=== PATIENT | female | born 1960 | race Caucasian/White ===

== ENCOUNTER → 2018-12-30 | Outpatient (CLI) | payer BC ==
--- NOTE | 2018-12-30 08:51 | US ---
EXAMINATION TYPE: US liver DATE OF EXAM: 12/30/2018 COMPARISON: NONE CLINICAL HISTORY: R74.8 Elevated lfts. EXAM MEASUREMENTS: Liver Length: 16.9 cm Gallbladder Wall: 0.2 cm CBD: 0.4 cm Right Kidney: 9.3 x 4.4 x 5.2 cm Pancreas: wn as seen Liver: Increased attenuation Gallbladder: No stones seen Evidence for sonographic Baig's sign: no CBD: wnl Right Kidney: No hydronephrosis or masses seen Homogeneous pancreas without mass or ductal dilatation on images saved. Liver is overall fairly homog eneous without intrahepatic mass or ductal dilatation. Hydronephrosis in the right kidney. Gallbladde r shows no shadowing mobile gallstones. IMPRESSION: No suspicious intrahepatic mass or intrahepatic ductal dilatation.
== END | disposition home or self-care (01) ==
LOC: RADUSWWP 07:32
PROVIDERS: ATTEND Family Medicine
DX: R74.8 Abnormal levels of other serum enzymes (principal)
CPT/HCPCS: 76705

== ENCOUNTER → 2019-05-12 | Outpatient (CLI) | payer BC ==
--- NOTE | 2019-05-12 16:14 | US ---
EXAMINATION TYPE: US thyroid st tissue head/neck DATE OF EXAM: 05/12/2019 COMPARISON: NONE CLINICAL HISTORY: E04.9 Goiter. Pt states physician felt thyroid to be enlarged on examination GLAND SIZE: Right Lobe: 3.8 x 1.3 x 1.4 cm Overall Parenchyma: heterogenous Left Lobe: 4.3 x 1.4 x 1.2 cm Overall Parenchyma: heterogeneous Isthmus Thickness: 0.3 cm Bilateral neck scanned, no evidence of lymphadenopathy. No evidence of nodules bilaterally, thyroid f elt to appear heterogeneous. IMPRESSION: Diffusely heterogenous thyroid gland with prominent size however no focal measurable nodu le is seen.
== END | disposition home or self-care (01) ==
LOC: RADUSWWP 15:53
PROVIDERS: ATTEND Family Medicine
DX: E07.9 Disorder of thyroid, unspecified (principal)
CPT/HCPCS: 76536

== ENCOUNTER → 2022-11-23 | Outpatient (CLI) | payer BC ==
--- NOTE | 2022-11-23 14:23 | US ---
EXAMINATION TYPE: US thyroid st tissue head/neck DATE OF EXAM: 11/23/2022 COMPARISON: There are ultrasound 05/12/2019 CLINICAL INDICATION: Female, 62 years old with history of R49.0 DYSPHONIA; Dysphonia GLAND SIZE: Right Lobe: 4.4 x 1.4 x 1.1 cm Overall Parenchyma: homogenous Left Lobe: 4.5 x 1.5 x 1.3 cm Overall Parenchyma: homogeneous Isthmus Thickness: .2 cm NODULES RIGHT: # of nodules measured on right: 0 LEFT: # of nodules measured on left: 0 ISTHMUS: # of nodules measured in the isthmus: 0 Hypoechoic area seen lateral right neck .9 x .3 x .6 cm. This demonstrates with thin central fatty hi lum and is consistent with a benign lymph node. IMPRESSION: Mildly prominent thyroid gland with no discrete thyroid nodule.
== END | disposition home or self-care (01) ==
LOC: RADUSWWP 13:22
PROVIDERS: ATTEND Family Medicine
DX: R49.0 Dysphonia (principal)
CPT/HCPCS: 76536

== ENCOUNTER → 2024-02-11 | Outpatient (CLI) | payer BC ==
--- NOTE | 2024-02-15 10:07 | CT ---
EXAMINATION TYPE: CT angio head neck CT DLP: 1447.50 mGycm, Automated exposure control for dose reduction was used. DATE OF EXAM: 02/11/2024 4:45 PM COMPARISON: None.. CLINICAL INDICATION:Female, 63 years old with history of R51.9 HEADACHE, UNSPECIFIED; PHH, headache x 1 month. TECHNIQUE: Axially acquired helical CT angiogram of the head and neck was obtained with contrast. Axi al images are supplemented with 3D reconstructions and MIP images which were post-processed at an in dependent workstation. NASCET criteria used. Contrast used:65ml mL of Isovue 300 without and with IV Contrast, Oral contrast used: None. FINDINGS: CTA HEAD: No evidence of acute intracranial hemorrhage, mass effect, or midline shift. The ventricles, sulci, a nd cisterns are unremarkable. The visualized portions of the internal carotid arteries, middle cerebral arteries, anterior cerebral arteries, and posterior cerebral arteries are patent. The basilar and vertebral arteries are patent. CTA NECK: Right Carotid System: The common carotid artery and external carotid artery are patent. The carotid bifurcation demonstrate s no evidence of hemodynamically significant stenosis. The remaining portions of the internal carotid artery demonstrate normal size without significant narrowing. Left Carotid System: The common carotid artery and external carotid artery are patent. The carotid bifurcation demonstrate s no evidence of hemodynamically significant stenosis. The remaining portions of the internal carotid artery demonstrate normal size without significant narrowing. Vertebral arteries are patent without evidence hemodynamically significant stenosis. There is a three-vessel aortic arch. The origins of the great vessels are patent. No evidence of hemo dynamically significant stenosis. Upper thorax: IMPRESSION: 1. No evidence of dissection of the cervical internal carotid arteries or vertebral arteries or any e vidence of significant stenosis at the carotid bifurcations. 2. No evidence of intracranial high-grade stenosis or intracranial aneurysm.
== END | disposition home or self-care (01) ==
LOC: RADCTMAIN 12:01
PROVIDERS: ATTEND Family Medicine
DX: R51.9 Headache, unspecified (principal)
CPT/HCPCS: 70496; 70498; Q9967

== ENCOUNTER → 2024-12-25 | Outpatient (CLI) | payer MEDICARE, BC ==
--- NOTE | 2024-12-25 18:04 | MR ---
EXAMINATION TYPE: MR brain wo con DATE OF EXAM: 12/25/2024 10:10 AM COMPARISON: None. CLINICAL INDICATION: Female, 64 years old with history of R51.9 HEADACHE, Headache and dizziness TECHNIQUE: Multiplanar, multiecho imaging on a 3.0 Ebony magnet is performed through the brain. Stud y is performed within 24 hours of arrival to the hospital.Multiplanar, multiecho imaging on a 3.0 Deana la magnet is performed through the knee. IV Contrast: mL (None, if empty) FINDINGS: The craniovertebral junction is normal. The pituitary is normal. Diffusion-weighted imaging is performed. No abnormal hyperintensity is present to suggest an acute i ntracranial infarct or acute ischemic change. There is some minimal periventricular white matter hyperintensity, likely on the basis of mild chroni c matter ischemic changes. Ventricles and sulci are appropriate for the patient age. There are inferior bilateral maxillary sinus retention cysts present. Mild mucosal thickening in ethm oid air cells. Remaining paranasal sinuses and air cells are clear. IMPRESSION: 1. No acute intracranial process. Follow-up can be performed as clinically indicated. 2. There may be some minimal chronic white matter changes. 3. Retention cysts and the coastal thickening within the maxillary and ethmoid air cells no acute sin usitis. [facility], , 12/25/2024 6:02 PM
== END | disposition home or self-care (01) ==
LOC: RADMRIMAIN 08:57
PROVIDERS: ATTEND Family Medicine
DX: J34.1 Cyst and mucocele of nose and nasal sinus (principal)
CPT/HCPCS: 70551

== ENCOUNTER → 2025-01-22 | Outpatient (CLI) | payer MEDICARE, BC | END | disposition home or self-care (01) | LOC: LABWHC1 09:50 | PROVIDERS: ATTEND Internal Medicine | DX: R06.02 Shortness of breath (principal); R42 Dizziness and giddiness | CPT/HCPCS: 36415; 85379 ==

== ENCOUNTER 2025-01-23 10:30 | Emergency (ER) | payer MEDICARE, BC ==
--- NOTE | 2025-01-23 10:47 | ED ---
General Adult HPI - General Chief complaint: Shortness of Breath Stated complaint: TAVARES Time Seen by Provider: 01/23/25 10:35 Source: patient, RN notes reviewed, old records reviewed Mode of arrival: wheelchair Limitations: no limitations - History of Present Illness Initial comments: This is a 64-year-old female who presents to the emergency department with a past history of asthma. Patient states that she went and saw a tubular splitting machine tender yesterday because she has had a couple of months of shortness of breath and the tubular splitting machine tender did a D-dimer and it was elevated so they wanted to come in and get a CAT scan of her chest. Patient denies any new symptoms today. Patient Nuys any fever chills. Patient has any chest pain or palpitations. Patient Nu ys any abdominal pain patient has nausea vomiting diarrhea. - Related Data Home Medications Medication Instructions Recorded Confirmed Albuterol Sulfate [Albuterol 2 puff INHALATION RT-Q6H PRN 01/23/25 01/23/25 Sulfate Hfa] Biotin 5,000 mcg PO DAILY 01/23/25 01/23/25 Fluticasone/Umeclidin/Vilanter 1 puff INHALATION RT-DAILY 01/23/25 01/23/25 [Trelegy Ellipta 200-62.5-25] Loratadine [Claritin] 10 mg PO HS 01/23/25 01/23/25 Montelukast [Singulair] 10 mg PO DAILY 01/23/25 01/23/25 Omeprazole [PriLOSEC] 20 mg PO DAILY 01/23/25 01/23/25 Rosuvastatin [Crestor] 10 mg PO DAILY 01/23/25 01/23/25 Turmeric Root Extract [Turmeric] 500 mg PO DAILY 01/23/25 01/23/25 amLODIPine [Norvasc] 5 mg PO DAILY 01/23/25 01/23/25 carvediloL [Coreg] 12.5 mg PO BID 01/23/25 01/23/25 lisinopriL [Zestril] 5 mg PO DAILY 01/23/25 01/23/25 valACYclovir HCL [Valtrex] 500 mg PO DAILY 01/23/25 01/23/25 Allergies Allergy/AdvReac Type Severity Reaction Status Date / Time Penicillins AdvReac Nausea & Verified 01/23/25 12:12 Vomiting Sulfa (Sulfonamide AdvReac Nausea & Verified 01/23/25 12:12 Antibiotics) Vomiting triamcinolone [From Kenalog] AdvReac Nausea & Verified 01/23/25 12:12 Vomiting & Diarrhea Review of Systems ROS Statement: Those systems with pertinent positive or pertinent negative responses have been documented in the HPI. ROS Other: All systems not noted in ROS Statement are negative. Past Medical History Past Medical History: COPD, Hypertension History of Any Multi-Drug Resistant Organisms: None Reported Past Surgical History: Joint Replacement Past Psychological History: No Psychological Hx Reported Smoking Status: Former smoker Past Alcohol Use History: Heavy, Occasional Past Drug Use History: None Reported General Exam - General Exam Comments Initial Comments: GENERAL: Patient is well-developed and well-nourished. Patient is nontoxic and well- hydrated and is in no acute distress. ENT: Neck is soft and supple. No significant lymphadenopathy is noted. Oropharynx is clear. Moist mucous membranes. Neck has full range of motion without eliciting any pain. EYES: The sclera were anicteric and conjunctiva were pink and moist. Extraocular movements were intact and pupils were equal round and reactive to light. Eyelids were unremarkable. PULMONARY: Unlabored respirations. Good breath sounds bilaterally. No audible rales rhonchi or wheezing was noted. CARDIOVASCULAR: There is a regular rate and rhythm without any murmurs gallops or rubs. ABDOMEN: Soft and nontender with normal bowel sounds. SKIN: Skin is clear with no lesions or rashes and otherwise unremarkable. NEUROLOGIC: Patient is alert and oriented x3. Cranial nerves II through XII are grossly intact. Motor and sensory are also intact. Normal speech, volume and content. Symmetrical smile. MUSCULOSKELETAL: Normal extremities with adequate strength and full range of motion. No lower extremity swelling or edema. No calf tenderness. LYMPHATICS: No significant lymphadenopathy is noted PSYCHIATRIC: Normal psychiatric evaluation. Limitations: no limitations Course Vital Signs 01/23/25 10:34 Temperature 97.9 F Pulse Rate 69 Respiratory 16 Rate Blood Pressure 124/64 O2 Sat by Pulse 95 Oximetry Medical Decision Making - Medical Decision Making EKG is interpreted by myself. EKG shows a sinus rhythm at 60 bpm [place] interval is 181 QRS is 89 QT interval is 411 QTc is 412. Patient's EKG shows no ST segment elevation or depression Was pt. sent in by a medical professional or institution (Dr., PA, DRIVE TESTER, urgent care, hospital, or fdc...) When possible be specific @ -No Did you speak to anyone other than the patient for history (EMS, parent, family, police, friend...)? What history was obtained from this source @ -No Did you review nursing and triage notes (agree or disagree)? Why? @ -I reviewed and agree with nursing and triage notes Were old charts reviewed (outside hosp., previous admission, EMS record, old EKG, old radiological studies, urgent care reports/EKG's, fdc records)? Report findings @ -No old charts were reviewed Differential Diagnosis? @ -Differential Chest Pain: Stable Angina, Unstable Angina, STEMI, NSTEMI Aortic Dissection, Pneumothorax, Musculoskeletal, Esophageal Spasm GERD, Cholecystitis, Pancreatitis, Zoster, this is not meant to be an all-inclusive list. EKG interpreted by me (3pts min.). @ -As above X-rays interpreted by me (1pt min.). @ -None done CT interpreted by me (1pt min.). @ -CT of the chest shows no pulmonary embolism does show some early signs of COPD U/S interpreted by me (1pt. min.). @ -None done What testing was considered but not performed or refused? (CT, X-rays, U/S, labs)? Why? @ -None What meds were considered but not given or refused? Why? @ -None Did you discuss the management of the patient with other professionals (professionals i.e. WENDY Garsia, DRIVE TESTER, lab, RT, psych nurse, community mental health social worker, healthcare administration internship, teacher, staff air defense officer, case folder)? Give summary @ -No Was smoking cessation discussed for >3mins.? @ -No Was critical care preformed (if so, how long)? @ -No Were there social determinants of health that impacted care today? How? (Homelessness, low income, unemployed, alcoholism, drug addiction, transport ation, low edu. Level, literacy, decrease access to med. care, half-way, rehab)? @ -No Was there de-escalation of care discussed even if they declined (Discuss DNR or withdrawal of care, Hospice)? DNR status @ -No What co-morbidities impacted this encounter? (DM, HTN, Smoking, COPD, CAD, Cancer, CVA, ARF, Chemo, Hep., AIDS, mental health diagnosis, sleep apnea, morbid obesity)? @ -None Was patient admitted / discharged? Hospital course, mention meds given and route, prescriptions, significant lab abnormalities, going to OR and other pertinent info. @ -Patient states she denies any new symptoms recently. Patient states the dyspnea has been ongoing for 2 months and she will follow-up with Dr. Bennett. Patient does not have a pulmonary embolism. Lab work shows no acute abnormality. Undiagnosed new problem with uncertain prognosis? @ -No Drug Therapy requiring intensive monitoring for toxicity (Heparin, Nitro, Insulin, Cardizem)? @ -No Were any procedures done? @ -No Diagnosis/symptom? @ -Chronic dyspnea Acute, or Chronic, or Acute on Chronic? @ -Chronic Uncomplicated (without systemic symptoms) or Complicated (systemic symptoms)? @ -Uncomplicated Side effects of treatment? @ -No Exacerbation, Progression, or Severe Exacerbation? @ -No Poses a threat to life or bodily function? How? (Chest pain, [place], [place], pneumonia, PE, COPD, DKA, ARF, appy, cholecystitis, CVA, Diverticulitis, Homicidal, Suicidal, threat to staff... and all critical care pts) @ -No - Lab Data Result diagrams: 01/23/25 10:59 01/23/25 10:59 Lab Results 01/23/25 01/23/25 01/23/25 Range/Units 10:59 10:59 10:59 WBC 5.87 (4.50-10.00) 10*3/uL RBC 4.16 (4.10-5.20) 10*6/uL Hgb 13.2 (12.0-15.0) g/dL Hct 38.9 (37.2-46.3) % MCV 93.5 (80.0-97.0) fL MCH 31.7 (27.0-32.0) pg MCHC 33.9 (32.0-37.0) g/dL Plt Count 254 (140-440) 10*3/uL MPV 10.0 (9.5-12.2) fL Immature Gran % (Auto) 0.2 % Neutrophils % 67.8 % Lymphocytes % 21.8 % Monocytes % 6.8 % Eosinophils % 2.9 % Basophils % 0.5 % Immature Gran # 0.01 (0.00-0.04) 10*3/uL Neutrophils # 3.98 (1.80-7.70) 10*3/uL Lymphocytes # 1.28 (0.90-5.00) 10*3/uL Monocytes # 0.40 (0.20-1.00) 10*3/uL Eosinophils # 0.17 (0.04-0.35) 10*3/uL Basophils # 0.03 (0.00-0.10) 10*3/uL D-Dimer (<0.60) mg/L FEU Sodium 139 (137-145) mmol/L Potassium 4.3 (3.5-5.1) mmol/L Chloride 106 (98-107) mmol/L Carbon Dioxide 22 (22-30) mmol/L Anion Gap 11 mmol/L BUN 12 (7-17) mg/dL Creatinine 0.74 (0.52-1.04) mg/dL Est GFR (CKD-EPI)AfAm >90 (>60 ml/min/1.73 sqM) Est GFR (CKD-EPI)NonAf 86 (>60 ml/min/1.73 sqM) Glucose 108 H (74-99) mg/dL Plasma Lactic Acid David 0.9 (0.7-2.0) mmol/L Calcium 9.6 (8.4-10.2) mg/dL Total Bilirubin 0.9 (0.2-1.3) mg/dL AST 27 (14-36) U/L ALT 27 (4-34) U/L Alkaline Phosphatase 92 (38-126) U/L Total Protein 7.4 (6.3-8.2) g/dL Albumin 4.6 (3.5-5.0) g/dL 01/23/25 Range/Units 10:59 WBC (4.50-10.00) 10*3/uL RBC (4.10-5.20) 10*6/uL Hgb (12.0-15.0) g/dL Hct (37.2-46.3) % MCV (80.0-97.0) fL MCH (27.0-32.0) pg MCHC (32.0-37.0) g/dL Plt Count (140-440) 10*3/uL MPV (9.5-12.2) fL Immature Gran % (Auto) % Neutrophils % % Lymphocytes % % Monocytes % % Eosinophils % % Basophils % % Immature Gran # (0.00-0.04) 10*3/uL Neutrophils # (1.80-7.70) 10*3/uL Lymphocytes # (0.90-5.00) 10*3/uL Monocytes # (0.20-1.00) 10*3/uL Eosinophils # (0.04-0.35) 10*3/uL Basophils # (0.00-0.10) 10*3/uL D-Dimer 0.71 H (<0.60) mg/L FEU Sodium (137-145) mmol/L Potassium (3.5-5.1) mmol/L Chloride (98-107) mmol/L Carbon Dioxide (22-30) mmol/L Anion Gap mmol/L BUN (7-17) mg/dL Creatinine (0.52-1.04) mg/dL Est GFR (CKD-EPI)AfAm (>60 ml/min/1.73 sqM) Est GFR (CKD-EPI)NonAf (>60 ml/min/1.73 sqM) Glucose (74-99) mg/dL Plasma Lactic Acid David (0.7-2.0) mmol/L Calcium (8.4-10.2) mg/dL Total Bilirubin (0.2-1.3) mg/dL AST (14-36) U/L ALT (4-34) U/L Alkaline Phosphatase (38-126) U/L Total Protein (6.3-8.2) g/dL Albumin (3.5-5.0) g/dL Disposition Clinical Impression: Chronic dyspnea Disposition: HOME SELF-CARE Condition: Good Instructions (If sedation given, give patient instructions): Dyspnea (ED) Is patient prescribed a controlled substance at d/c from ED?: No Referrals: Júnior Galindo MD [Primary Care Provider] - 1-2 days Time of Disposition: 12:27
[2025-01-23 11:12] LABS: HCT 38.9 % (37.2-46.3); HGB 13.2 g/dL (12.0-15.0); MCH 31.7 pg (27.0-32.0); MCHC 33.9 g/dL (32.0-37.0); MCV 93.5 fL (80.0-97.0); Platelet Count 254 10*3/uL (140-440); RBC 4.16 10*6/uL (4.10-5.20); RDW 12.8 % (11.5-14.5); WBC 5.87 10*3/uL (4.50-10.00)
[2025-01-23 11:13] LABS: Basophils # (A) 0.03 10*3/uL (0.00-0.10); Basophils % (A) 0.5 %; Eosinophils # (A) 0.17 10*3/uL (0.04-0.35); Eosinophils % (A) 2.9 %; Lymphocytes # (A) 1.28 10*3/uL (0.90-5.00); Lymphocytes % (A) 21.8 %; Monocytes # (A) 0.40 10*3/uL (0.20-1.00); Monocytes % (A) 6.8 %; Neutrophils # (A) 3.98 10*3/uL (1.80-7.70); Neutrophils % (A) 67.8 %
[2025-01-23 11:30] LABS: ALT 27 U/L (4-34); AST 27 U/L (14-36); African American GFR (CKD) >90 (>60 ml/min/1.73 sqM); Albumin 4.6 g/dL (3.5-5.0); Alkaline Phosphatase 92 U/L (38-126); Anion Gap 11 mmol/L; Blood Urea Nitrogen 12 mg/dL (7-17); Calcium 9.6 mg/dL (8.4-10.2); Carbon Dioxide 22 mmol/L (22-30); Chloride 106 mmol/L (98-107); Glucose 108 mg/dL (74-99); Non-African American GFR(CKD) 86 (>60 ml/min/1.73 sqM); Potassium 4.3 mmol/L (3.5-5.1); Sodium 139 mmol/L (137-145); Total Protein 7.4 g/dL (6.3-8.2)
--- NOTE | 2025-01-23 12:20 | CT ---
EXAMINATION TYPE: CT chest angio for PE DATE OF EXAM: 01/23/2025 COMPARISON: CLINICAL INDICATION: Female, 64 years old with history of Elevated D-dimer, shortness of breath; PHH, Elevated D-dimer, shortness of breath, SOB or PAIN TECHNIQUE: Ct angiogram of the chest performed with with IV Contrast, patient injected with 76ml mL of Isovue 37 0. MIP images are created and reviewed. CT DLP: 360.[address] CTDI: mGy Automated exposure control for dose reduction was used. FINDINGS: There are mild emphysematous changes with an upper lobe predominance. There are a few scattered calci fied granulomas. There is no airspace consolidation or abnormal interstitial density. There is no pleural effusion or pneumothorax. The great vessels and chest are normal and there is no filling defect within the pulmonary arterial c irculation. The heart size is normal. There is no mediastinal, hilar or axillary adenopathy. Limited scanning through the upper abdomen reveals no abnormality. The osseous structures are intact. IMPRESSION: 1. No pulmonary embolus. 2. Mild emphysematous changes. 3. Prior granulomatous disease exposure. 4. No acute cardiopulmonary disease. [facility], , 01/23/2025 12:18 PM
[2025-01-23 12:43] VITALS: BP 124/77; PULSE 59; RESP 20; TEMP 97.8
== END 2025-01-23 12:43 | disposition home or self-care (01) ==
LOC: EC 10:30
DX: R06.00 Dyspnea, unspecified (principal); Z87.891 Personal history of nicotine dependence; Z88.0 Allergy status to penicillin; Z88.1 Allergy status to other antibiotic agents; Z88.2 Allergy status to sulfonamides
CPT/HCPCS: 36415; 93005; 85379; 80053; 83605; 85025; 71275; 99285; Q9967